=== PATIENT | male | born 1965 | race Hispanic/Latino ===

== ENCOUNTER 2021-12-08 19:21 | Emergency (ER) | payer SELFPAY ==
--- NOTE | 2021-12-08 19:47 | RAD REPORT ---
EXAM DESCRIPTION: CT - Ct Stroke Brain Wo Cont - 12/08/2021 7:36 pm CLINICAL HISTORY: Neuro deficit, acute, stroke suspected COMPARISON: No comparisons TECHNIQUE: All CT scans are performed using dose optimization technique as appropriate and may inclu de automated exposure control or mA/KV adjustment according to patient size. FINDINGS: No intracranial hemorrhage, hydrocephalus or extra-axial fluid collection.No areas of brai n edema or evidence of midline shift. Remote appearing small left occipital lobe infarct. Small air-fluid level in the left sphenoid sinus. The calvarium is intact. IMPRESSION: No acute intracranial abnormality. Remote appearing left occipital lobe infarct. Discussed with Dr. Warner by Dr. Almazan at 1941 on 12/08/21
[2021-12-08 20:11] LABS: Absolute Lymphocytes (CBC) 1.6 K/uL (0.7-4.9); Hematocrit 38.5 % (39.6-49.0); Lymphocytes % 23.1 % (15.3-44.8); MPV 8.9 fL (7.6-11.3); RBC Red Blood Cell Count 4.64 M/uL (4.33-5.43)
[2021-12-08 20:23] LABS: Protime INR 0.99
--- NOTE | 2021-12-08 20:34 | RAD REPORT ---
EXAM DESCRIPTION: CT - CTFB CLINICAL HISTORY: Facial trauma, blunt COMPARISON: No comparisons TECHNIQUE: Axial 2 mm thick images of the face were obtained with sagittal and coronal reconstructio n images. All CT scans are performed using dose optimization technique as appropriate and may include automated exposure control or mA/KV adjustment according to patient size. FINDINGS: Laceration to the tip of the nose. The underlying nasal bones are mildly angulated. Slight angulation of the left frontal process of the maxilla. Nondisplaced fracture of the bony nasal septu m is suspected. The mandible is intact. The globes and orbital contents are grossly unremarkable.Small air-fluid level left sphenoid sinus. T race thickening in the left maxillary sinus IMPRESSION: Minimally displaced fracture of the bony nasal septum. Question nondisplaced left fronta l process of the maxilla fracture. Small nasal bone fractures at the tip of the nose not excluded.
--- NOTE | 2021-12-08 20:35 | RAD REPORT ---
EXAM DESCRIPTION: CT - C Spine Wo Con - 12/08/2021 8:25 pm CLINICAL HISTORY: Neck trauma, uncomplicated (NEXUS/PECARN neg) COMPARISON: No comparisons TECHNIQUE: CT Scan was obtained of the cervical spine without contrast. Reformats were provided in t he sagittal and coronal plane. FINDINGS: No acute fracture of the cervical spine. No traumatic malalignment. No prevertebral edema. No significant focal degenerative changes. No suspicious thyroid nodules or lymphadenopathy. The opal g apices are clear. IMPRESSION: No fracture or traumatic malalignment of the cervical spine.
[2021-12-08 20:44] LABS: BUN Blood Urea Nitrogen 24 mg/dL (7-18); Bicarbonate 25 mmol/L (21-32); Glucose Level 109 mg/dL (74-106); Potassium 3.5 mmol/L (3.5-5.1); Sodium Level 140 mmol/L (136-145)
--- NOTE | 2021-12-08 20:57 | RAD REPORT ---
EXAM DESCRIPTION: RAD - Chest Single View - 12/08/2021 8:48 pm CLINICAL HISTORY: TRAUMA COMPARISON: No comparisons FINDINGS: Lines: None. Lungs: No evidence of edema or pneumonia. Pleural: No significant pleural effusions or pneumothorax. Cardiac: The heart size is within normal limits. Bones: No acute fractures. Other: IMPRESSION: No acute cardiopulmonary disease.
[2021-12-08 21:23] LABS: Urine Blood 2+ (Negative); Urine Glucose Trace (Negative); Urine Protein 2+ (Negative); Urine Specific Gravity 1.025 (1.005-1.030)
[2021-12-08 21:37] LABS: Creatine Phosphokinase 108 U/L (39-308)
[2021-12-08 21:53] LABS: Barbiturates NEGATIVE (NEGATIVE); Benzodiazepines NEGATIVE (NEGATIVE); Cocaine NEGATIVE (NEGATIVE); METHAMPHETAM NEGATIVE (NEGATIVE); Methadone NEGATIVE (NEGATIVE); Opiates NEGATIVE (NEGATIVE); Phencyclidine NEGATIVE (NEGATIVE); THC Cannibis POSITIVE (NEGATIVE)
--- NOTE | 2021-12-08 22:01 | RAD REPORT ---
EXAM DESCRIPTION: CTChest Abd Pelvis Wo Con - 12/08/2021 9:45 pm CLINICAL HISTORY: Polytrauma, blunt COMPARISON: No comparisons TECHNIQUE: CT of the chest, abdomen, and pelvis was performed. All CT scans are performed using dose optimization technique as appropriate and may include automated exposure control or mA/KV adjustment according to patient size. FINDINGS: Thorax: Chest Wall: No abnormal mass Lungs: No acute abnormality. Pleura: No effusions or pneumothorax. Rachael/Mediastinum: No lymphadenopathy. Aorta/Pulmonary Arteries: Unremarkable Heart: Normal size. Abdomen/Pelvis: Liver: No acute abnormality or suspicious lesions. Biliary: No biliary ductal dilatation. Stomach: No significant focal abnormality. Duodenum: No significant focal abnormality. Pancreas: No significant abnormality. Spleen: No significant abnormality. Adrenal: No suspicious lesions. Kidney/ureter: No hydronephrosis. No renal calculi. Retroperitoneum: No retroperitoneal adenopathy. Vascular: No aneurysm. Bowel: Normal appendix.. Partial colectomy. Peritoneum: No ascites or free air.Small fat containing inguinal hernias. Bladder: Grossly unremarkable. Reproductive: No adnexal masses. Bones: No acute fracture. Partially calcified disc bulge at L3-4 results in severe central spinal anjel nosis. In addition, there is severe right neural foraminal narrowing. A partially calcified broad-bas ed disc bulge is also noted at L2-3. This results in moderate central spinal stenosis. Other: n/a IMPRESSION: No evidence of significant trauma to the chest, abdomen, or pelvis. Chronic severe central spinal stenosis is noted at L3-4 secondary to a chronically calcified disc pro trusion.
[2021-12-08] MEDS ORDERED: NA CHLORIDE 0.9% 1,000 ML ONE (22:08)
[2021-12-08] MEDS ORDERED: ACETAMINOPHEN 500 MG TAB ONE (22:45)
[2021-12-08] MEDS ORDERED: CEFAZOLIN SODIUM 1 GM/VIAL ONE (23:07)
[2021-12-08] MEDS ORDERED: TETANUS & DIPHTHERIA TOX,ADULT 0.5 ML VIAL ONE (23:07)
[2021-12-08] MEDS ORDERED: NA CHLORIDE 0.9% 100 ML IV ONE (23:07)
--- NOTE | 2021-12-08 23:23 | EDPHYS ---
Physician Documentation [facility] Name: Domenic Newman Age: 56 yrs Sex: Male : 1965 Arrival Date: 12/08/2021 Time: 19:22 Bed 3 Private MD: ED Physician Berny Warner HPI: 12/08 19:30 This 56 yrs old Male presents to ER via EMS with complaints of Fall. mh7 19:30 Details of fall: The patient fell from an upright position, while walking, and struck mh7 Sand. Onset: The symptoms/episode began/occurred just prior to arrival, today. Associated injuries: The patient sustained injury to the head, abrasion, contusion, laceration, of the nose and chin, pain. Severity of symptoms: At their worst the symptoms were moderate, earlier today, in the emergency department the symptoms have improved, mildly. EMS and bystander report that patient attended a wedding and was walking on sand when he fell onto ground hitting his head and face. He had LOC and complained of numbness/tingling to both arms. Denies any symptoms prior to falling including headache, chest pain, abdominal pain, SOB, nausea, vomiting, dizziness, or weakness. He admits to smoking marijuana earlier today.. Historical: - Allergies: 19:44 No Known Allergies; as6 - Home Meds: 19:44 lisinopril Oral [Active]; Aspirin Oral [Active]; Metformin Oral [Active]; as6 - PMHx: 19:44 Cerebrovascular accident; Diabetes mellitus; Hypertensive disorder; as6 - Immunization history:: Adult Immunizations unknown. - Social history:: Smoking status: Patient denies any tobacco usage or history of. Patient uses street drugs, marijuana. - Immunization history: Last tetanus immunization: unknown. ROS: 19:30 Constitutional: Negative for fever, chills, and weight loss, Eyes: Negative for injury, mh7 pain, redness, and discharge, Neck: Negative for injury, pain, and swelling, Cardiovascular: Negative for chest pain, palpitations, and edema, Respiratory: Negative for shortness of breath, cough, wheezing, and pleuritic chest pain, Abdomen/GI: Negative for abdominal pain, nausea, vomiting, diarrhea, and constipation, Back: Negative for injury and pain, : Negative for injury, bleeding, discharge, and swelling, MS/Extremity: Negative for injury and deformity, Skin: Negative for injury, rash, and discoloration, Psych: Negative for depression, anxiety, suicide ideation, homicidal ideation, and hallucinations, Allergy/Immunology: Negative for hives, rash, and allergies, Endocrine: Negative for neck swelling, polydipsia, polyuria, polyphagia, and marked weight changes, Hematologic/Lymphatic: Negative for swollen nodes, abnormal bleeding, and unusual bruising. Exam: 19:30 Constitutional: This is a well developed, well nourished patient who is awake, alert, mh7 and in no acute distress. Eyes: Pupils equal round and reactive to light, extra-ocular motions intact. Lids and lashes normal. Conjunctiva and sclera are non-icteric and not injected. Cornea within normal limits. Periorbital areas with no swelling, redness, or edema. Neck: Trachea midline, no thyromegaly or masses palpated, and no cervical lymphadenopathy. Supple, full range of motion without nuchal rigidity, or vertebral point tenderness. No Meningismus. 19:30 Chest/axilla: Normal chest wall appearance and motion. Nontender with no deformity. No lesions are appreciated. Respiratory: Lungs have equal breath sounds bilaterally, clear to auscultation and percussion. No rales, rhonchi or wheezes noted. No increased work of breathing, no retractions or nasal flaring. Abdomen/GI: Soft, non-tender, with normal bowel sounds. No distension or tympany. No guarding or rebound. No evidence of tenderness throughout. Back: No spinal tenderness. No costovertebral tenderness. Full range of motion. 19:30 Neck: C-spine: C-collar placed in ED. 19:30 Head/face: Noted is a laceration(s), that is deep, of the chin and nose. mh7 19:30 ENT: External ear(s): are unremarkable, Ear canal(s): are normal, clear, TM's: are normal, hemotympanum, is not appreciated, bilaterally, Nose: laceration, that is deep, bridge of nose and apex of the nose, Posterior pharynx: is normal, airway is patent, Dental exam: normal, Voice: is normal. 19:30 Cardiovascular: Regular rate and rhythm with a normal S1 and S2. No gallops, murmurs, mh7 or rubs. Normal PMI, no JVD. No pulse deficits. 19:30 Psych: Awake, alert, with orientation to person, place and time. Behavior, mood, and affect are within normal limits. 19:30 Skin: injury, laceration(s), the wound is approximately 4 cm(s), with a depth of 0.5 cm(s), of the nose, the second wound is approximately 4 cm(s), with a depth of 1.0 cm(s), of the chin, that can be described as no foreign body, irregular, through and through, without bleeding. 19:30 Neuro: Orientation: is normal, Mentation: is normal, Memory: is normal, Cranial nerves: grossly normal, Cerebellar function: is grossly normal, Motor: is normal, Sensation: is normal, Gait: not tested. seizure activity, is not displayed by the patient, Abnormal movements: there are no abnormal movements. Vital Signs: 19:26 BP 170 / 138; Pulse 64; Resp 18; Temp 97.9(O); Pulse Ox 100% on R/A; Weight 99.79 kg; as6 20:30 BP 103 / 60; Pulse 61 MON; Resp 12 S; Pulse Ox 100% on R/A; as6 21:30 BP 110 / 63; Pulse 65 MON; Resp 18 S; Pulse Ox 100% on R/A; as6 22:27 BP 137 / 70; Pulse 79 MON; Resp 14 S; Pulse Ox 99% on R/A; as6 23:11 BP 132 / 66; Pulse 89; Resp 17; Pulse Ox 99% on R/A; kd3 23:57 BP 109 / 65; Pulse 87; Resp 19; Pulse Ox 99% on R/A; kd3 [place] Coma Score: 19:34 Eye Response: spontaneous(4). Verbal Response: confused(4). Motor Response: obeys as6 commands(6). Total: 14. 22:27 Eye Response: spontaneous(4). Verbal Response: confused(4). Motor Response: obeys as6 commands(6). Total: 14. Trauma Score (Adult): 19:34 Eye Response: spontaneous(1); Verbal Response: confused(1); Motor Response: obeys as6 commands(2); Systolic BP: > 89 mm Hg(4); Respiratory Rate: 10 to 29 per min(4); [place] Score: 14; Trauma Score: 12 MDM: 23:11 Differential diagnosis: abrasion, closed head injury, contusion, fracture, laceration, mh7 multiple trauma. Data reviewed: vital signs, nurses notes, EMS record, lab test result(s), cardiac enzymes, CBC, drug level(s), acetaminophen, alcohol, salicylate, electrolytes, urine drug screen, EKG, radiologic studies, CT scan, plain films. Data interpreted: Pulse oximetry: on room air is 99 %. Interpretation: normal. Counseling: I had a detailed discussion with the patient and/or guardian regarding: the historical points, exam findings, and any diagnostic results supporting the discharge/admit diagnosis, the presence of at least one elevated blood pressure reading (>120/80) during this emergency department visit, lab results, radiology results, the need to transfer to another facility, for higher level of care, [facility] does not immediately have the required specialist. Response to treatment: the patient's symptoms have mildly improved after treatment. ED course: NAD, VSS, patient with complaint of continuous numbness of both upper extremities. No focal weakness on exam. Discussed test results and findings and possibility of injury that was not revealed on studies done in the ED and consideration of transfer to trauma center for further evaluation due to inability to get MRI here and no neurosurgery specialist here to evaluate. Patient agreeable to transfer.. 23:22 Patient medically screened. [facility] 12/08 19:25 Order name: Basic Metabolic Panel; Complete Time: 21:46 [facility] 12/08 19:25 Order name: CBC with Diff; Complete Time: 20:24 [facility] 12/08 19:25 Order name: Protime (+inr); Complete Time: 20:24 3 12/08 19:25 Order name: Ptt, Activated; Complete Time: 20:24 [facility] 12/08 19:43 Order name: ETOH Level; Complete Time: 21:03 [facility] 12/08 19:43 Order name: UDS; Complete Time: 22:09 [facility] 12/08 19:43 Order name: Salicylate; Complete Time: 21:03 [facility] 12/08 19:56 Order name: Glucose, Ancillary Testing; Complete Time: 19:58 EDMS 12/08 20:08 Order name: Troponin High Sensitivity; Complete Time: 21:46 [facility] 12/08 20:08 Order name: Acetaminophen Level; Complete Time: 21:46 [facility] 12/08 21:23 Order name: Urine Dipstick-Ancillary; Complete Time: 21:46 [facility] 12/08 19:25 Order name: CT Stroke Brain w/o Contrast; Complete Time: 19:58 [facility] 12/08 19:25 Order name: Stroke CXR 1 View; Complete Time: 21:03 [facility] 12/08 19:25 Order name: EKG; Complete Time: 19:26 [facility] 12/08 19:25 Order name: Accucheck; Complete Time: 19:47 [facility] 12/08 19:25 Order name: Cardiac monitoring; Complete Time: 19:47 [facility] 12/08 19:46 Order name: CT Facial Bones W/O Con; Complete Time: 21:03 [facility] 12/08 19:46 Order name: CT C Spine; Complete Time: 21:03 [facility] 12/08 21:14 Order name: CT Chest Abdomen Pelvis W/O Contrast; Complete Time: 22:09 [facility] 12/08 21:27 Order name: Creatine Phosphokinase; Complete Time: 21:46 [facility] 12/08 22:48 Order name: Forearm Left XRAY [facility] 12/08 22:48 Order name: Forearm Right XRAY [facility] 12/08 19:25 Order name: EKG - Nurse/Tech; Complete Time: 19:46 [facility] 12/08 19:25 Order name: IV Saline Lock; Complete Time: 20:03 [facility] 12/08 19:25 Order name: Labs collected and sent; Complete Time: 21:24 [facility] 12/08 19:25 Order name: NPO; Complete Time: 21:24 [facility] 12/08 19:25 Order name: O2 Per Protocol; Complete Time: 21:24 [facility] 12/08 19:25 Order name: O2 Sat Monitoring; Complete Time: 21:24 [facility] 12/08 19:25 Order name: Stroke Swallow Screen; Complete Time: 22:09 [facility] 12/08 19:43 Order name: Urine Dipstick-Ancillary (obtain specimen); Complete Time: 21:23 [facility] 12/08 23:16 Order name: Dressing - Wound; Complete Time: 23:32 cp 12/08 23:16 Order name: Gloves, Sterile; Complete Time: 23:32 cp 12/08 23:16 Order name: Setup Suture Tray; Complete Time: 23:32 cp Administered Medications: 22:09 Drug: NS 0.9% 1000 ml Route: IV; Rate: 1 bolus; Site: left antecubital; kd3 12/09 00:06 Follow up: Response: No adverse reaction; Rate change 1000 ml; IV Status: Completed kd3 infusion 12/08 22:47 Drug: Tylenol 1000 mg Route: PO; kd3 12/09 00:06 Follow up: Response: No adverse reaction; Pain is decreased kd3 12/08 23:09 Drug: Tetanus-Diphtheria Toxoid Adult 0.5 ml {Fur Tinter: Musistic. Exp: kd3 10/19/2022. Lot #: [id number]. } Route: IM; Site: right deltoid; 12/09 00:06 Follow up: Response: No adverse reaction kd3 12/08 23:09 Drug: Ancef (cefazolin) 1 grams Route: IVPB; Site: left antecubital; kd3 12/09 00:06 Follow up: Response: No adverse reaction; IV Status: Completed infusion kd3 00:06 Not Given (Physician Discretion): Lidocaine (1 %) 20 ml 20 ml Infiltration once; to kd3 bedside Disposition Summary: 12/08/21 23:22 Transfer Ordered Transfer Location: [place] [id number] Reason: Higher level of care mh7 Condition: Stable mh7 Problem: new mh7 Symptoms: have improved mh7 Accepting Physician: Dr. 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 EDMS EDMS 20:08 19:42 Troponin High Sensitivity+C.LAB.BRZ ordered. EDMS EDMS 21:27 21:05 CREATINE PHOSPHOKINASE+C.LAB.BRZ ordered. EDMS EDMS 23:22 Dr. Bang mh7 mh7 12/09 00:06 12/08 23:27 Dr. Hayes 7 kd3
--- NOTE | 2021-12-08 23:23 | ER ---
Nurse's Notes [facility] Name: Domenic Newman Age: 56 yrs Sex: Male : 1965 Arrival Date: 12/08/2021 Time: 19:22 Bed 3 Private MD: Diagnosis: Fall on same level, unspecified;Facial bone fractures, nasal bones, maxilla;Facial Lacerations;Dual sensory impairment-bilateral upper extremities;Concussion with loss of consciousness of unspecified duration Presentation: 12/08 19:26 Chief complaint: EMS states: pt was at wedding and had positive LOC, fell face forward as6 and hit head. upon arrival to ER pt does not remember passing out and pt c/o left arm numbness. Coronavirus screen: At this time, the client does not indicate any symptoms associated with coronavirus-19. Ebola Screen: No symptoms or risks identified at this time. Initial Sepsis Screen: Does the patient meet any 2 criteria? No. Patient's initial sepsis screen is negative. Does the patient have a suspected source of infection? No. Patient's initial sepsis screen is negative. Risk Assessment: Do you want to hurt yourself or someone else? Patient reports no desire to harm self or others. Onset of symptoms was December 08, 2021. Care prior to arrival: None. 19:26 Method Of Arrival: EMS: [facility] as6 19:26 Acuity: KRYSTEN 2 as6 19:31 Mechanism of Injury: Fall from standing position. Trauma event details: Injury as6 occurred: in a recreational area. Injury occurred: December 08, 2021. 12/09 00:04 Care prior to arrival: Cervical collar in place. kd3 Trauma Activation: Alert Physician: ED Physician; Name: ; Notified At: ; Arrived At: Physician: General Surgeon; Name: ; Notified At: ; Arrived At: Physician: Radiology; Name: ; Notified At: ; Arrived At: Physician: Respiratory; Name: ; Notified At: ; Arrived At: Physician: Lab; Name: ; Notified At: ; Arrived At: Historical: - Allergies: 12/08 19:44 No Known Allergies; as6 - Home Meds: 19:44 lisinopril Oral [Active]; Aspirin Oral [Active]; Metformin Oral [Active]; as6 - PMHx: 19:44 Cerebrovascular accident; Diabetes mellitus; Hypertensive disorder; as6 - Immunization history:: Adult Immunizations unknown. - Social history:: Smoking status: Patient denies any tobacco usage or history of. Patient uses street drugs, marijuana. - Immunization history: Last tetanus immunization: unknown. Screenin:10 Abuse screen: Denies threats or abuse. Denies injuries from another. Tuberculosis kd3 screening: No symptoms or risk factors identified. 12/09 00:04 Nutritional screening: No deficits noted. Fall Risk IV access (20 points). kd3 Primary Survey: 12/08 19:32 NO uncontrolled hemorrhage observed. A: The client is alert. Airway: patent. as6 Breathing/Chest: Respiratory effort: spontaneous, unlabored. Circulation: Skin color: pink, Skin temperature: warm. Disability Client is alert. Exposure/Environment: All clothing and personal items were removed. A warming method has been applied: A warm blanket has been provided to the patient. 12/09 00:01 PT IS A\\T\\O X4, HOWEVER PT CONTINUES TO BE REPETITIVE. Reassessment Alertness and Airway: kd3 Awake and alert. The airway is patent. Breathing: Spontaneous respiratory effort, equal unlabored respirations, breath sounds clear bilaterally, regular pattern with symmetrical chest rise and fall. Circulation: No external hemorrhage noted. Regular and strong central pulse, skin warm/dry/normal color. Heart rhythm Sinus rhythm Disability: Pupils Pupils are equal, round, reactive to light and accomodation. Alert. Secondary Survey: 12/08 19:33 HEENT: Head Other laceration to nose, bleeding controlled. Gastrointestinal: Abdomen is as6 soft. 22:10 HEENT: Face Other LACERATION TO THE NOSE. BLEEDING CONTROLLED. : Genitalia appear kd3 normal. Musculoskeletal: No deficits noted. Injury Description:. Assessment: 19:32 General: Appears in no apparent distress. Behavior is calm, cooperative. as6 19:45 General: pt repeating "what happened?" . as6 23:10 Pain: Complains of pain in chin and nose. Neuro: Level of Consciousness is awake, kd3 alert, obeys commands, Oriented to person, place, time, situation. Cardiovascular: Patient's skin is warm and dry. Respiratory: Airway is patent Trachea midline Respiratory effort is even, unlabored, Respiratory pattern is regular, symmetrical. 12/09 00:02 Reassessment: Patient and/or family updated on plan of care and expected duration. Pain kd3 level reassessed. Patient is alert, oriented x 3, equal unlabored respirations, skin warm/dry/pink. Vital Signs: 12/08 19:26 BP 170 / 138; Pulse 64; Resp 18; Temp 97.9(O); Pulse Ox 100% on R/A; Weight 99.79 kg; as6 20:30 BP 103 / 60; Pulse 61 MON; Resp 12 S; Pulse Ox 100% on R/A; as6 21:30 BP 110 / 63; Pulse 65 MON; Resp 18 S; Pulse Ox 100% on R/A; as6 22:27 BP 137 / 70; Pulse 79 MON; Resp 14 S; Pulse Ox 99% on R/A; as6 23:11 BP 132 / 66; Pulse 89; Resp 17; Pulse Ox 99% on R/A; kd3 23:57 BP 109 / 65; Pulse 87; Resp 19; Pulse Ox 99% on R/A; kd3 Aiden Coma Score: 19:34 Eye Response: spontaneous(4). Verbal Response: confused(4). Motor Response: obeys as6 commands(6). Total: 14. 22:27 Eye Response: spontaneous(4). Verbal Response: confused(4). Motor Response: obeys as6 commands(6). Total: 14. Trauma Score (Adult): 19:34 Eye Response: spontaneous(1); Verbal Response: confused(1); Motor Response: obeys as6 commands(2); Systolic BP: > 89 mm Hg(4); Respiratory Rate: 10 to 29 per min(4); [place] Score: 14; Trauma Score: 12 ED Course: 19:22 Patient arrived in ED. mw2 19:23 Buddy Pope, JANKI is Primary Nurse. as6 19:29 Berny Warner MD is Attending Physician. mh7 19:31 Triage completed. as6 19:34 Arm band placed on. as6 19:34 Placed in gown. Bed in low position. Call light in reach. Side rails up X2. Adult w/ as6 patient. Client placed on continuous cardiac and pulse oximetry monitoring. NIBP monitoring applied. Warm blanket given. 19:34 Patient maintains SpO2 saturation greater than 95% on room air. Thermoregulation: warm as6 blanket given to patient. 19:38 CT Stroke Brain w/o Contrast In Process Unspecified. EDMS 20:25 CT Facial Bones W/O Con In Process Unspecified. EDMS 20:27 CT C Spine In Process Unspecified. EDMS 20:49 Stroke CXR 1 View In Process Unspecified. EDMS 21:47 CT Chest Abdomen Pelvis W/O Contrast In Process Unspecified. EDMS 22:48 initiated a transfer with Aditi Palomino from [facility]. mw2 23:07 administrative approval given by Aditi Palomino/ patient has been accepted to [address] to the ER/ Dr. Hayes accepted the patient in transfer/report to be called to [phone]. 23:45 Forearm Left XRAY In Process Unspecified. EDMS 23:45 Forearm Right XRAY In Process Unspecified. EDMS 12/09 00:03 No provider procedures requiring assistance completed. Inserted saline lock: 20 gauge kd3 in left antecubital area, using aseptic technique. Blood collected. Patient transferred, IV remains in place. Administered Medications: 12/08 22:09 Drug: NS 0.9% 1000 ml Route: IV; Rate: 1 bolus; Site: left antecubital; kd3 12/09 00:06 Follow up: Response: No adverse reaction; Rate change 1000 ml; IV Status: Completed kd3 infusion 12/08 22:47 Drug: Tylenol 1000 mg Route: PO; kd3 12/09 00:06 Follow up: Response: No adverse reaction; Pain is decreased kd3 12/08 23:09 Drug: Tetanus-Diphtheria Toxoid Adult 0.5 ml {Prototype Special Build: Outerstuff. Exp: kd3 10/19/2022. Lot #: [id number]. } Route: IM; Site: right deltoid; 12/09 00:06 Follow up: Response: No adverse reaction kd3 12/08 23:09 Drug: Ancef (cefazolin) 1 grams Route: IVPB; Site: left antecubital; kd3 12/09 00:06 Follow up: Response: No adverse reaction; IV Status: Completed infusion kd3 00:06 Not Given (Physician Discretion): Lidocaine (1 %) 20 ml 20 ml Infiltration once; to kd3 bedside Output: 12/08 22:10 Urine: 200ml (Straight Cath); Total: 200ml. kd3 Outcome: 23:22 ER care complete, transfer ordered by . mh7 12/09 00:03 Transferred by ground EMS to [facility]. kd3 Condition: stable Discharge instructions given to patient, family, Instructed on discharge instructions, Demonstrated understanding of NEED FOR TRANSFER 00:04 Patient's length of stay was not longer than 2 hours. kd3 00:06 Patient left the ED. kd3 Signatures: Dispatcher [employer] EDMS Ne Ojeda mw2 Berny Warner MD MD mh7 Buddy Pope, RN RN as6 Radha Duenas, JANKI RN kd3
[2021-12-08] MEDS ORDERED: LIDOCAINE 1% MPF 30 ML VIAL ONE (23:31)
[2021-12-09 00:59] VITALS: TEMP 97.9
[2021-12-09 01:03] VITALS: O2SAT 99
[2021-12-09 01:05] VITALS: BP 109/65
--- NOTE | 2021-12-10 09:00 | EKG ---
Test Date: 2021-12-08 Test Time: 19:41:31 Personal Development Mentor: SILVANA MEASUREMENT RESULTS: Intervals: Rate: 62 PA: 182 QRSD: 142 QT: 462 QTc: 468 [place]: P: 49 PA: 182 QRS: 90 T: 46 INTERPRETIVE STATEMENTS: Normal sinus rhythm Right bundle branch block Abnormal ECG No previous ECG available for comparison Electronically Signed On 12-10-21 08:56:52 CDT by Ponce Lin
--- NOTE | 2021-12-10 13:32 | RAD REPORT ---
EXAM DESCRIPTION: RAD - Forearm Left - 12/08/2021 11:43 pm CLINICAL HISTORY: NUMBNESS/TINGLING. COMPARISON: None. TECHNIQUE: Two views of the right and left forearm: AP and lateral radiographs. FINDINGS: No acute osseous abnormality is identified. Alignment is maintained. No concerning osseous abnormality is identified. No radiopaque foreign object in the soft tissues. IMPRESSION: Unremarkable right and left forearm radiographs. Electronically signed by: Monica Tan MD 12/09/2021 12:05 AM CDT Due to temporary technical issues with the PACS/Fluency reporting system, reports are being signed by the in house radiologist without review as a courtesy to ensure prompt reporting. The interpreting r adiologist is fully responsible for the content of the report.
--- NOTE | 2021-12-10 13:33 | RAD REPORT ---
EXAM DESCRIPTION: RAD - Forearm Right - 12/08/2021 11:43 pm CLINICAL HISTORY: NUMBNESS/TINGLING. COMPARISON: None. TECHNIQUE: Two views of the right and left forearm: AP and lateral radiographs. FINDINGS: No acute osseous abnormality is identified. Alignment is maintained. No concerning osseous abnormality is identified. No radiopaque foreign object in the soft tissues. IMPRESSION: Unremarkable right and left forearm radiographs. Electronically signed by: Monica Tan MD 12/09/2021 12:05 AM CDT Due to temporary technical issues with the PACS/Fluency reporting system, reports are being signed by the in house radiologist without review as a courtesy to ensure prompt reporting. The interpreting r adiologist is fully responsible for the content of the report.
== END 2021-12-09 00:06 | disposition short-term general hospital (02) ==
LOC: ER 19:21
DX: S06.0X9A Concussion with loss of consciousness of unspecified duration, initial encounter (principal); S02.2XXA Fracture of nasal bones, initial encounter for closed fracture; S02.401A Maxillary fracture, unspecified side, initial encounter for closed fracture; S01.21XA Laceration without foreign body of nose, initial encounter; W18.30XA Fall on same level, unspecified, initial encounter; Z23 Encounter for immunization; E11.9 Type 2 diabetes mellitus without complications; I10 Essential (primary) hypertension; Z86.73 Personal history of transient ischemic attack (TIA), and cerebral infarction without residual deficits; Z79.82 Long term (current) use of aspirin
CPT/HCPCS: 36415; 70450; 70486; 71045; 71250; 72125; 74176; 76377; 80048; 80307; 80320; 80329; 81003; 82550; 82947; 84484; 85025; 85610; 85730; 90471; 90714; 93005; 96361; 96365; 99285; J0690; J7030